=== PATIENT | male | born 1960 | race Caucasian/White ===

== ENCOUNTER 2018-09-12 19:21 | Emergency (ER) | payer OTHER | END 2018-09-12 23:22 | disposition home or self-care (01) | LOC: FTE 19:21 | DX: S06.0X0A Concussion without loss of consciousness, initial encounter (principal); T14.8XXA Other injury of unspecified body region, initial encounter; I10 Essential (primary) hypertension; V49.40XA Driver injured in collision with unspecified motor vehicles in traffic accident, initial encounter; Z79.82 Long term (current) use of aspirin | CPT/HCPCS: 70450; 70486; 71046; 72125; 99284-25 ==